=== PATIENT | female | born 1960 | race Hispanic/Latino ===

== ENCOUNTER 2021-06-29 20:55 | Inpatient (IN) | payer OTHER ==
[~2021-06-29] VITALS: Ht 152.4 cm; Wt 67.1 kg
[2021-06-29 21:27] LABS: BASOPHILS % (AUTO) 0.2 % (0.0-5.0); EOSINOPHILS % (AUTO) 0.1 % (0.0-8.0); HEMATOCRIT 35.2 % (36-48); LYMPHOCYTES % (AUTO) 16.2 % (21.0-51.0); MEAN CORPUSCULAR HEMOGLOBIN 27.3 pg (27.0-33.0); MEAN CORPUSCULAR HGB CONC 32.4 g/dL (32.0-36.0); MEAN CORPUSCULAR VOLUME 84.4 fL (79-99); MONOCYTES % (AUTO) 12.7 % (3.0-13.0); NEUTROPHILS % (AUTO) 70.2 % (40.0-77.0); PLATELET COUNT (AUTO) 478 K/uL (130-400); RED BLOOD CELL COUNT(AUTO) 4.17 MIL/uL (4.00-5.50); RED CELL DISTRIBUTION WIDTH 15.6 % (11.0-15.5); WHITE BLOOD COUNT (AUTO) 19.6 K/uL (4.8-10.8)
[2021-06-29] MEDS ORDERED: TETANUS/DIPHTHERIA TOXOID [ADULT] 0.5 ML VIAL IM ONE (21:30)
[2021-06-29] MEDS ORDERED: DIAZEPAM 5 MG TABLET PO ONE (21:30)
[2021-06-29] MEDS ORDERED: HYDROCODONE/ACETAMINOPHEN 5/325 MG TAB PO ONE (21:30)
[2021-06-29] MEDS ORDERED: KETOROLAC 30MG VIAL (30MG/ML) IM ONE (21:30)
[2021-06-29 21:49] LABS: CREATININE 0.8 mg/dL (0.5-1.5); POTASSIUM 3.7 mmol/L (3.5-5.1)
[2021-06-29 21:49] LABS: APPEARANCE,URINE Turbid (CLEAR); BILIRUBIN,URINE Negative (NEGATIVE); COLOR,URINE Yellow (YELLOW); GLUCOSE, URINE (UA) Negative (NEGATIVE); KETONES,URINE Trace mg/dL (NEGATIVE); LEUKOCYTE ESTERASE ,URINE Large (NEGATIVE); NITRATE,URINE Positive (NEGATIVE); OCCULT BLOOD,URINE Large (NEGATIVE); PROTEIN,URINE POS 2+ mg/dL (NEGATIVE)
[2021-06-29 21:54] LABS: ALBUMIN 3.2 g/dL (3.5-5.0); BILIRUBIN,TOTAL 0.2 mg/dL (0.2-1.0); TOTAL PROTEIN, SERUM 6.9 g/dL (6.0-8.3)
[2021-06-29 22:02] LABS: BACTERIA,URINE Moderate /HPF (None Seen); MUCUS,URINE Few LPF (None Seen); SQUAMOUS EPITHELIAL CELL,UR Few /HPF (0-2)
[2021-06-29] MEDS ORDERED: LIDOCAINE HCL-MPF 1% 2ML VIAL ONE (22:23)
[2021-06-29] MEDS ORDERED: CEFTRIAXONE 1G VIAL IM ONE (22:30)
[2021-06-29] MEDS ORDERED: CEPH500B PO (22:47)
[2021-06-29] MEDS ORDERED: NAPR-1180 PO (22:47)
[2021-06-29] MEDS ORDERED: CYCL10TA16 PO (22:47)
[2021-06-30] MEDS ORDERED: CEFTRIAXONE 1G VIAL IVP SCH (03:00)
[2021-06-30] MEDS ORDERED: HYDRALAZINE 25MG TABLET PO PRN (03:00)
[2021-06-30] MEDS ORDERED: ONDANSETRON 4MG INJ IVP PRN (03:00)
[2021-06-30] MEDS ORDERED: ACETAMINOPHEN 325 MG TAB PO PRN (03:00)
[2021-06-30] MEDS: HYDROCODONE/ACETAMINOPHEN 5/325 MG TAB PO PRN ×3 (06:51→21:49)
[2021-06-30] MEDS: ENOXAPARIN SODIUM 30 MG/0.3 ML SQ SCH (08:56)
[2021-06-30] MEDS: LISINOPRIL 10 MG TABLET PO SCH (08:56)
[2021-06-30] MEDS: FAMOTIDINE 20MG TAB PO SCH ×2 (08:56→20:51)
[2021-06-30 10:45] LABS: BASOPHILS % (AUTO) 0.4 % (0.0-5.0); EOSINOPHILS % (AUTO) 0.8 % (0.0-8.0); HEMATOCRIT 34.4 % (36-48); LYMPHOCYTES % (AUTO) 25.8 % (21.0-51.0); MEAN CORPUSCULAR HEMOGLOBIN 26.4 pg (27.0-33.0); MEAN CORPUSCULAR HGB CONC 31.1 g/dL (32.0-36.0); MEAN CORPUSCULAR VOLUME 84.9 fL (79-99); MONOCYTES % (AUTO) 8.7 % (3.0-13.0); PLATELET COUNT (AUTO) 425 K/uL (130-400); RED BLOOD CELL COUNT(AUTO) 4.05 MIL/uL (4.00-5.50); RED CELL DISTRIBUTION WIDTH 15.7 % (11.0-15.5); WHITE BLOOD COUNT (AUTO) 16.9 K/uL (4.8-10.8)
[2021-06-30 10:56] LABS: ALBUMIN 2.9 g/dL (3.5-5.0); BILIRUBIN,TOTAL 0.2 mg/dL (0.2-1.0); CREATININE 0.7 mg/dL (0.5-1.5); CRP QUANTITATIVE 10.6 mg/L (0.00-9.0); POTASSIUM 3.5 mmol/L (3.5-5.1); TOTAL PROTEIN, SERUM 6.2 g/dL (6.0-8.3)
[2021-06-30 12:01] LABS: ERYTHROCYTE SEDIMENTATION RATE 14 MM/HR (0-30)
[2021-06-30] MEDS ORDERED: LIDOCAINE 5% TOPICAL PATCH TP ONE (12:30)
[2021-06-30] MEDS ORDERED: KETOROLAC 15MG/ML VIAL (15MG/ML) IV ONE (12:30)
[2021-06-30] MEDS ORDERED: PHENAZOPYRIDINE HCL 200 MG TABLET PO ONE (12:30)
[2021-06-30] MEDS ORDERED: 0.9%NACL 1000ML 1,000 ML IV SCH (12:30)
[2021-06-30] MEDS: ZOSYN 3.375GM +NS 50ML IV SCH ×2 (12:52→20:51)
[2021-06-30 13:03] LABS: THYROID STIMULATING HORMONE 3.27 uIU/mL (0.36-3.74)
[2021-06-30 13:12] LABS: HEMOGLOBIN A1C 6.2 % (4.0-6.0)
[2021-06-30 22:34] VITALS: BP 134/63
[2021-06-30] MEDS ORDERED: METH-811 PO (23:41)
[2021-06-30] MEDS ORDERED: TRAM50TA4 PO (23:41)
[2021-07-01] MEDS: ZOSYN 3.375GM +NS 50ML IV SCH ×2 (04:12→12:30)
[2021-07-01] MEDS: HYDROCODONE/ACETAMINOPHEN 5/325 MG TAB PO PRN (04:12)
[2021-07-01 04:29] VITALS: BP 130/59
[2021-07-01 05:01] LABS: BASOPHILS % (AUTO) 0.6 % (0.0-5.0); EOSINOPHILS % (AUTO) 2.1 % (0.0-8.0); HEMATOCRIT 30.4 % (36-48); LYMPHOCYTES % (AUTO) 31.5 % (21.0-51.0); MEAN CORPUSCULAR HEMOGLOBIN 27.5 pg (27.0-33.0); MEAN CORPUSCULAR HGB CONC 32.9 g/dL (32.0-36.0); MEAN CORPUSCULAR VOLUME 83.7 fL (79-99); MONOCYTES % (AUTO) 12.1 % (3.0-13.0); NEUTROPHILS % (AUTO) 53.4 % (40.0-77.0); PLATELET COUNT (AUTO) 427 K/uL (130-400); RED BLOOD CELL COUNT(AUTO) 3.63 MIL/uL (4.00-5.50); RED CELL DISTRIBUTION WIDTH 15.7 % (11.0-15.5); WHITE BLOOD COUNT (AUTO) 14.9 K/uL (4.8-10.8)
[2021-07-01 05:21] LABS: ALBUMIN 2.6 g/dL (3.5-5.0); BILIRUBIN,TOTAL 0.2 mg/dL (0.2-1.0); CREATININE 0.6 mg/dL (0.5-1.5); POTASSIUM 4.1 mmol/L (3.5-5.1); TOTAL PROTEIN, SERUM 5.7 g/dL (6.0-8.3)
[2021-07-01] MEDS: LISINOPRIL 10 MG TABLET PO SCH (09:00)
[2021-07-01] MEDS: FAMOTIDINE 20MG TAB PO SCH (09:00)
[2021-07-01 09:06] VITALS: BP 126/73
[2021-07-01] MEDS ORDERED: AMOX1TAB16 PO (09:29)
[2021-07-01] MEDS ORDERED: KETO10TA2 PO (09:29)
[2021-07-01] MEDS ORDERED: KETOROLAC 15MG/ML VIAL (15MG/ML) IV PRN (09:30)
[2021-07-01] MEDS: ENOXAPARIN SODIUM 30 MG/0.3 ML SQ SCH (09:53)
[2021-07-01 12:00] VITALS: BP 119/45
== END 2021-07-01 14:28 | disposition home or self-care (01) | DRG 690 ==
LOC: EDH 20:55 → EDHIP 20:56 → OBSVTOIN 20:56 → 3AH 06-30 21:16
PROVIDERS: ADMIT Internal Medicine; ATTEND Internal Medicine
DX: N39.0 Urinary tract infection, site not specified (principal); N20.0 Calculus of kidney; Z91.19 Patient's noncompliance with other medical treatment and regimen; Z20.822 Contact with and (suspected) exposure to COVID-19; Z98.82 Breast implant status; Z87.442 Personal history of urinary calculi; W18.39XA Other fall on same level, initial encounter; Y93.89 Activity, other specified; Y92.89 Other specified places as the place of occurrence of the external cause; Y99.8 Other external cause status; I10 Essential (primary) hypertension; F17.200 Nicotine dependence, unspecified, uncomplicated; S20.211A Contusion of right front wall of thorax, initial encounter
CPT/HCPCS: 36415; 70450; 71250; 73560; 74176; 80053; 81001; 82550; 83036; 84145; 84443; 84484; 85025; 85651; 86140; 87077; 87088; 87186; 87635; 87880; 90714; 92610; 93005; C9803; G0378; J0696; J1650; J1885; J2543; J3490; J7030

== ENCOUNTER 2021-09-20 03:04 | Inpatient (IN) | payer OTHER, SELFPAY ==
[~2021-09-20] VITALS: Ht 152.4 cm; Wt 64.4 kg
[~2021-09-20 03:04] MED LIST: AMOX1TAB16 PO; KETO10TA2 PO
[2021-09-20 03:29] LABS: APPEARANCE,URINE CLEAR (CLEAR); BILIRUBIN,URINE NEGATIVE (NEGATIVE); COLOR,URINE YELLOW (YELLOW); GLUCOSE, URINE (UA) NEGATIVE (NEGATIVE); KETONES,URINE NEGATIVE (NEGATIVE); LEUKOCYTE ESTERASE ,URINE LARGE (NEGATIVE); NITRATE,URINE POSITIVE (NEGATIVE); OCCULT BLOOD,URINE LARGE (NEGATIVE); PROTEIN,URINE 100 mg/dL (NEGATIVE); UROBILINOGEN,URINE 0.2 mg/dL (0.2-1.0)
[2021-09-20 03:38] LABS: RBC,URINE 26-50 /HPF (0-1); WBC,URINE 51-100 /HPF (0-1)
[2021-09-20 03:39] LABS: BACTERIA,URINE Few /HPF (None Seen)
[2021-09-20 03:40] LABS: SQUAMOUS EPITHELIAL CELL,UR Rare /HPF (0-2)
[2021-09-20] MEDS ORDERED: 0.9%NACL 1000ML 1,000 ML IV ONE (04:30)
[2021-09-20] MEDS ORDERED: KETOROLAC 15MG/ML VIAL (15MG/ML) IV ONE (04:30)
[2021-09-20 04:32] LABS: EOSINOPHILS % (AUTO) 11.7 % (0.0-8.0); HEMATOCRIT 34.4 % (36-48); LYMPHOCYTES % (AUTO) 25.2 % (21.0-51.0); MEAN CORPUSCULAR HEMOGLOBIN 25.7 pg (27.0-33.0); MEAN CORPUSCULAR VOLUME 80.4 fL (79-99); MONOCYTES % (AUTO) 11.9 % (3.0-13.0); NEUTROPHILS % (AUTO) 49.9 % (40.0-77.0); PLATELET COUNT (AUTO) 527 K/uL (130-400); RED BLOOD CELL COUNT(AUTO) 4.28 MIL/uL (4.00-5.50); RED CELL DISTRIBUTION WIDTH 15.9 % (11.0-15.5); WHITE BLOOD COUNT (AUTO) 14.5 K/uL (4.8-10.8)
[2021-09-20 04:55] LABS: ALBUMIN 3.1 g/dL (3.5-5.0); BILIRUBIN,TOTAL 0.1 mg/dL (0.2-1.0); CREATININE 0.8 mg/dL (0.5-1.5); POTASSIUM 3.2 mmol/L (3.5-5.1); TOTAL PROTEIN, SERUM 6.9 g/dL (6.0-8.3)
[2021-09-20] MEDS ORDERED: ZOSYN 3.375GM +NS 50ML IV SCH (05:30)
[2021-09-20] MEDS ORDERED: NITROGLYCERIN 0.4 MG SL TAB SL PRN (06:00)
[2021-09-20] MEDS ORDERED: KCL 20 MEQ ERTAB PO ONE (06:00)
[2021-09-20] MEDS ORDERED: ACETAMINOPHEN 325 MG TAB PO PRN (06:00)
[2021-09-20] MEDS ORDERED: ONDANSETRON 4MG INJ IV PRN (06:00)
[2021-09-20] MEDS: 0.9%NACL 1000ML 1,000 ML IV SCH ×2 (06:19→20:46)
[2021-09-20] MEDS: FAMOTIDINE 20MG TAB PO SCH ×2 (08:42→20:46)
[2021-09-20] MEDS: ENOXAPARIN SODIUM 30 MG/0.3 ML SQ SCH (08:42)
[2021-09-20] MEDS ORDERED: TAMSULOSIN HCL 0.4 MG CAP.ER.24H PO SCH (13:30)
[2021-09-20] MEDS: ZOSYN 3.375GM+NS 50ML 50 ML IV SCH ×2 (13:44→20:46)
[2021-09-20] MEDS ORDERED: SENNOSIDES 8.6 MG TABLET PO SCH (14:50)
[2021-09-20 15:00] VITALS: BP 127/55
[2021-09-20 20:00] VITALS: BP 121/52
[2021-09-20] MEDS: DOCUSATE SODIUM 100 MG CAP PO SCH (20:46)
[2021-09-20] MEDS: SENNOSIDES 8.6 MG TABLET PO SCH (20:46)
[2021-09-20] MEDS: TRAMADOL HCL 50 MG TABLET PO PRN (22:40)
[2021-09-21] VITALS (7 sets, daily range): BP systolic 116–144; BP diastolic 55–71
[2021-09-21] MEDS ORDERED: HYDROXYZINE 25 MG TABLET ONE (00:12)
[2021-09-21] MEDS: 0.9%NACL 1000ML 1,000 ML IV SCH ×2 (02:00→12:00)
[2021-09-21] MEDS: ZOSYN 3.375GM+NS 50ML 50 ML IV SCH ×3 (05:19→22:17)
[2021-09-21 05:32] LABS: BASOPHILS % (AUTO) 1.2 % (0.0-5.0); HEMATOCRIT 30.6 % (36-48); LYMPHOCYTES % (AUTO) 32.7 % (21.0-51.0); MEAN CORPUSCULAR HEMOGLOBIN 25.3 pg (27.0-33.0); MEAN CORPUSCULAR VOLUME 81.6 fL (79-99); MONOCYTES % (AUTO) 10.1 % (3.0-13.0); NEUTROPHILS % (AUTO) 40.8 % (40.0-77.0); PLATELET COUNT (AUTO) 480 K/uL (130-400); RED BLOOD CELL COUNT(AUTO) 3.75 MIL/uL (4.00-5.50); WHITE BLOOD COUNT (AUTO) 9.8 K/uL (4.8-10.8)
[2021-09-21 05:53] LABS: CREATININE 0.7 mg/dL (0.5-1.5)
[2021-09-21 05:57] LABS: ALBUMIN 2.4 g/dL (3.5-5.0); BILIRUBIN,TOTAL 0.2 mg/dL (0.2-1.0); MAGNESIUM 1.7 mg/dL (1.80-2.40); TOTAL PROTEIN, SERUM 5.6 g/dL (6.0-8.3)
[2021-09-21] MEDS: FAMOTIDINE 20MG TAB PO SCH ×2 (10:15→22:17)
[2021-09-21] MEDS: DOCUSATE SODIUM 100 MG CAP PO SCH ×2 (10:15→22:17)
[2021-09-21] MEDS: ENOXAPARIN SODIUM 30 MG/0.3 ML SQ SCH (10:16)
[2021-09-21] MEDS: TRAMADOL HCL 50 MG TABLET PO PRN (10:16)
[2021-09-21] MEDS ORDERED: TAMSULOSIN HCL 0.4 MG CAP.ER.24H PO SCH (21:00)
[2021-09-21] MEDS: SENNOSIDES 8.6 MG TABLET PO SCH (22:17)
[2021-09-22 03:41] VITALS: BP 108/50
[2021-09-22] MEDS: ZOSYN 3.375GM+NS 50ML 50 ML IV SCH ×2 (05:18→14:37)
[2021-09-22 05:24] LABS: BASOPHILS % (AUTO) 1.4 % (0.0-5.0); EOSINOPHILS % (AUTO) 11.1 % (0.0-8.0); HEMATOCRIT 31.1 % (36-48); LYMPHOCYTES % (AUTO) 29.6 % (21.0-51.0); MEAN CORPUSCULAR HEMOGLOBIN 26.1 pg (27.0-33.0); MEAN CORPUSCULAR HGB CONC 31.8 g/dL (32.0-36.0); MEAN CORPUSCULAR VOLUME 81.8 fL (79-99); MONOCYTES % (AUTO) 9.9 % (3.0-13.0); NEUTROPHILS % (AUTO) 47.7 % (40.0-77.0); PLATELET COUNT (AUTO) 437 K/uL (130-400); RED CELL DISTRIBUTION WIDTH 16.1 % (11.0-15.5); WHITE BLOOD COUNT (AUTO) 10.8 K/uL (4.8-10.8)
[2021-09-22 05:59] LABS: % IRON SATURATION 5.8 % (22-44)
[2021-09-22 06:06] LABS: CREATININE 0.7 mg/dL (0.5-1.5); MAGNESIUM 1.8 mg/dL (1.80-2.40); POTASSIUM 3.8 mmol/L (3.5-5.1); THYROID STIMULATING HORMONE 2.23 uIU/mL (0.36-3.74)
[2021-09-22 08:07] VITALS: BP 117/66
[2021-09-22] MEDS: DOCUSATE SODIUM 100 MG CAP PO SCH (10:31)
[2021-09-22] MEDS: FAMOTIDINE 20MG TAB PO SCH (10:31)
[2021-09-22] MEDS: ENOXAPARIN SODIUM 30 MG/0.3 ML SQ SCH (10:31)
[2021-09-22 12:00] VITALS: BP 112/88
[2021-09-22] MEDS ORDERED: IRON SUCROSE COMPLEX 400 MG in 0.9% NACL 250ML 250 ML IV SCH (14:00)
[2021-09-22] MEDS ORDERED: EPOETIN ALFA-EPBX (NON-ESRD) 10,000 UNIT/ML VIAL SQ SCH (14:00)
[2021-09-22] MEDS ORDERED: CEFU500T67 PO (14:02)
[2021-09-22] MEDS ORDERED: ACET-2079 PO (14:02)
[2021-09-22] MEDS: TRAMADOL HCL 50 MG TABLET PO PRN (14:37)
[2021-09-22 15:39] VITALS: BP 133/67
== END 2021-09-22 18:05 | disposition home or self-care (01) | DRG 690 ==
LOC: EDH 03:04 → EDHIP 03:05 → 3CH 15:46
PROVIDERS: ADMIT Internal Medicine; ATTEND Internal Medicine
DX: N39.0 Urinary tract infection, site not specified (principal); E87.6 Hypokalemia; B96.20 Unspecified Escherichia coli [E. coli] as the cause of diseases classified elsewhere; F17.210 Nicotine dependence, cigarettes, uncomplicated
CPT/HCPCS: 36415; 74176; 80048; 80053; 81001; 82607; 82728; 82746; 83540; 83550; 83735; 84145; 84443; 84484; 85025; 85045; 87040; 87077; 87088; 87186; 93005; G0378; J1650; J1756; J1885; J2543; J7030; J7050